=== PATIENT | male | born 1955 | race Caucasian/White ===

== ENCOUNTER → 2016-06-16 | Day surgery (SDC) | payer OTHER ==
[2016-06-14 12:53] VITALS: Ht 182.9 cm; Wt 93.2 kg
--- NOTE | 2016-06-15 18:29 | HISTORY & PHYSICAL EXAMINATION ---
DATE OF ADMISSION: 06/16/2016 HISTORY OF PRESENT ILLNESS: A 60-year-old male who presents for preop evaluation, requesting surgery to painful dorsal right hallux. He describes the pain as tender. He noticed the condition started over 2 years ago; however, the last 6 months have been gradually getting worse. He denies any recent exposure, precipitating even or history of this condition. Associated signs and symptoms include tenderness. He has had extensive conservative treatment for the past [address] Coto in [place] who referred him to my office for surgical intervention. He has failed accommodative padding, accommodative shoes, multiple steroid injections, oral medications, insoles with little to no relief. He notes the conservative care, did help; however, when he returns to any increase in activity his pain is greater. He is requesting surgical intervention due to the nature and severity of discomfort. PAST SURGICAL HISTORY: Shoulder surgery in 2008, knee surgery in 2004, hand surgery in 2007. PAST MEDICAL HISTORY: Hypertension, arthritis. MEDICATIONS: None. ALLERGIES: SULFA DRUGS. FAMILY HISTORY: Asthma, colitis. SOCIAL HISTORY: Admits to alcohol use, drinking described as social. The patient admits to tobacco use, currently is not smoking, quit 2 weeks ago, relates a smoking history of 40 pack-years. REVIEW OF SYSTEMS: Unremarkable except chief complaint. PHYSICAL EXAMINATION: CONSTITUTIONAL: The patient appears well-developed and nourished with good attention to body grooming and habitus. HEAD AND FACE: Head is normocephalic and atraumatic without any gross head, face, or neck masses. EYES: Conjunctival and pupillary reaction to light and accommodation are normal. EARS, NOSE, MOUTH, AND THROAT: Unremarkable. NECK: Neck is supple. Trachea is midline without any adenopathy or crepitus palpable. CARDIOVASCULAR EXAMINATION: Normal S1, S2 without murmur, gallops, rubs, or clicks noted. Cardiovascular exam is normal. RESPIRATORY: Chest is symmetric. No scars are visible. No port or pacemaker. LUNGS: Clear to auscultation bilaterally and equal. GASTROINTESTINAL EXAMINATION: Abdominal organs, bladder, and kidneys show no abnormalities, masses, tenderness, or rigidity. LYMPHATIC EXAMINATION: No popliteal, inguinal, or supraclavicular lymphadenopathy noted. LOWER EXTREMITY VASCULAR EXAMINATION: DP palpable. PT palpable. DERMATOLOGY: There is swelling of the right hallux metatarsophalangeal joint +2/6. The right metatarsophalangeal joint hallux is red. NEUROLOGICAL: Touch, pin, vibratory pain, proprioception sensations are normal. Deep tendon reflexes are normal. MUSCULOSKELETAL: Muscle tone is normal. Muscle strength is 5/5 all groups tested. Inspection and palpation of bones, joints and muscles is unremarkable. First metatarsophalangeal joint shows evidence of painful palpable dorsal eminence on the right. Range of motion is eliminated and the hallux is abutting the second toe on the right, pain on palpation and light palpation of the right first metatarsophalangeal joint tenderness over attempted dorsiflexion and plantarflexion with limited range of motion noted. IMPRESSION: 1. Hallux rigidus, right first metatarsophalangeal joint. 2. Osteoarthritis, right first metatarsophalangeal joint. 3. Degenerative joint disease, right first metatarsophalangeal joint. 4. Hallux abducto valgus deformity, right. 5. Difficulty walking. 6. Pain lower extremity, right foot. PLAN: I discussed conservative treatment consisting of extra depth shoes, accommodative padding, steroid injections, nonsteroidals and orthotics. The patient did not proceed with orthotics previously as these were not covered by his insurance and was unable to afford them. This was discussed at length at the preoperative visit, noting that it would be recommended to obtain the orthotics preoperatively as he still may need these despite having surgery. The patient notes he is unable to afford this treatment at this time and would like to proceed with surgical intervention. Surgical procedure to be performed modified Marley cheilectomy, metatarsal phalangeal joint and toe implant arthroplasty, right first MTPJ. This will be performed under general anesthesia as an outpatient at the surgery center. Procedure, risks and complications were fully reviewed with the patient. Consent form, foot diagram and illustration reviewed in all their entirety. All the patient's questions were answered. Complications were discussed in detail with the patient including pain, infection, swelling that may or may not be excessive, pins and needles feeling, numbness, metatarsalgia, excessive bleeding, delay or nonhealing of bone, delay or nonhealing of skin, enlarged scar, failure of the procedure, reoccurrence or worsening condition which may or may not require further surgery, adverse reaction to anesthesia, allergic reaction to suture or other implant material, loss of toe, foot, or leg, flail toe, stiff toe, short toe, elevated toe, transfer lesion or callus, peripheral neurovascular complications such as phlebitis, damage to nerves or vascular structures, significant chronic pain, chronic nerve pain or damage, and general medical complications. The patient will be required to be in a surgery shoe for a minimum of 3-6 weeks and not return to dress shoe for 8-12 weeks depending on postop edema. The patient is aware this is an elective type procedure and I recommend a second opinion. The patient stated they understood. Consent form was signed with a copy of the foot diagram and illustration given to the patient. Verbal and written postop instructions were given. The patient will be required to be in a surgery shoe for a minimum of 3-6 weeks and not return to dress shoe for 8-12 weeks depending on the postop edema. The patient will return to the office for postop check or sooner if medically necessary. Instructed to keep dressing clean, dry, and intact until seen at the office.
[~2016-06-16] VITALS: Ht 182.9 cm; Wt 93.2 kg
[~2016-06-16] MED LIST: ATROPINE SULFATE 0.1 MG/ML 5ML SYR IV PRN; BUPIVACAINE 0.5 % 5 MG/1 ML MPF 30ML VIAL ONE; CEFAZOLIN 1000MG/55 ML D5W IV SCH; ETOD400T PO; FENTANYL CITRATE INJ 50 MCG/1 ML 2 ML VIAL IV PRN; HYDR-5688 PO; KETOROLAC TROMETHAMINE 30 MG/ML VIAL IV. PRN; LABETALOL HCL IV 5 MG/ML 20ML IV PRN; LACTATED RINGER'S 1000ML 1,000 ML IV SCH; LOSA50TA6 PO; ONDANSETRON INJ 2 MG/ML 2 ML VIAL IV PRN; PATIENT'S ALLERGY INFO NEEDS ENTERED SCH; SODIUM CHLORIDE 0.9% 1000ML 1,000 ML IV SCH
--- NOTE | 2016-06-16 06:49 | History & Physical Bridge - SC ---
H&P Re-Evaluation Bridge Note: I have examined the patient, reviewed the History & Physical and in the interval since the performance of the History & Physical I have noted the following changes of clinical significance: No changes noted
--- NOTE | 2016-06-16 06:50 | Discharge Instructions-SurgCtr ---
Discharge Instructions Visit Reason for Visit: Right Hallux Limitus Discharge Discharge Diagnosis / Problem: same as above Discharge Goals Goal(s): Decrease discomfort Activity Recommendations Activity Limitations: as noted below Medications: * Resume previous medications unless instructed by your surgeon. * Take your medications as prescribed. Call our office ([phone]) at any time, if you experience severe pain that does not subside shortly after taking your pain medication. Activity: * Do not put any standing weight on your operated foot/ankle. Use the crutches or walker as instructed. Special Care: * Keep your bandage clean and dry. Do not remove your bandage unless otherwise instructed. A small amount of blood may appear on the bandage over the surgical site. Call our office ([phone]) if you bandage becomes blood-soaked or wet. * Elevate your operated foot/ankle on pillows, above the level of your heart, as often as possible during the first 2-3 days following surgery. Keep your knee flexed slightly with a pillow under your knee when you elevate your foot/ankle. * Apply a ice bag to your foot/ankle over the operative site for 20-30 minutes out of each hour while you are awake. Do not allow the ice bag to directly contact bare skin. * Avoid bumping or handling any pins visible in your toes. If any pin feels or appears loose, call the office ([phone]). * Take your oral temperature in the morning and at bedtime. Call our office ([phone]) if your temperature rises above 101 degrees Fahrenheit. Call your surgeon's office at ([phone]) for any problems or concerns such as excessive bleeding and/or pain unrelieved by your prescribed pain medications. If you have any questions, please do not hesitate to ask them. Avoid all tobacco products. If you need help to stop smoking, call [place] FREE QUITLINE at . This is a free call. Follow-up: Follow-up with Dr. Renee Anesthesia . Post Anesthesia Instructions: If you have had General Anesthesia or IV Sedation: * Do not drive today. * Resume driving when surgeon permits. * Do not make important decisions or sign legal documents today. * Call surgeon for: 1. Temperature elevations greater than 101 degrees F. 2. Uncontrollable pain. 3. Excessive bleeding. 4. Persistent nausea and vomiting. 5. Medication intolerance (nausea, vomiting or rash). * For nausea and vomiting use only clear liquids such as: tea, soda, bouillon until nausea subsides, then gradually increase diet as tolerated. * If you have any concerns or questions, call your surgeon's office. If physician is unavailable and it is an emergency, call 911 or go to the nearest emergency room. . Diet Recommendations Home Diet: no limitations Pending Studies Studies pending at discharge: no Medical Emergencies . Who to Call and When: Medical Emergencies: If at any time you feel your situation is an emergency, please call 911 immediately. . Non-Emergent Contact Non-Emergency issues call your: Primary Care Provider . . "Provider Documentation" section prepared by Omayra Hendricks.
--- NOTE | 2016-06-16 09:41 | DIAGNOSTIC IMAGING REPORT ---
RIGHT FOOT RADIOGRAPHS CLINICAL HISTORY: Postoperative evaluation of the right foot. COMPARISON STUDY: Intraoperative fluoroscopic images of the right foot performed earlier today. FINDINGS: These images demonstrate a right first metatarsophalangeal joint arthroplasty. The hardware is intact and anatomic alignment is noted. There are no unexpected radiopaque foreign body. There is soft tissue gas as expected. Tarsometatarsal joints are intact. There is no acute fracture. There is moderate plantar calcaneal spurring. IMPRESSION: Expected findings following right first metatarsophalangeal joint arthroplasty. Electronically signed by: Nathaniel Morales M.D. 06/16/2016 9:39 AM Dictated Date/Time: 06/16/2016 9:31 AM
[2016-06-16 10:07] VITALS: TEMP 36.6
--- NOTE | 2016-06-16 10:09 | DIAGNOSTIC IMAGING REPORT ---
SURGICENTER FOOT, 2 VIEWS CLINICAL HISTORY: RIGHT FOOT SURGERYpostoperative evaluation COMPARISON STUDY: None FLUOROSCOPY TIME: 10 seconds. FINDINGS: Anatomic alignment status post right first metatarsophalangeal joint arthroplasty. IMPRESSION: Anatomic alignment status post right first metatarsal phalangeal joint arthroplasty. Electronically signed by: Jeronimo Nugent M.D. 06/16/2016 10:08 AM Dictated Date/Time: 06/16/2016 9:53 AM
--- NOTE | 2016-06-16 10:17 | OPERATIVE REPORT ---
DATE OF OPERATION: 06/16/2016 SURGEON: Dr. Renee. PREOPERATIVE DIAGNOSES: Degenerative joint disease, hallux limitus, hallux abductovalgus deformity, right first metatarsophalangeal joint capsulitis. POSTOPERATIVE DIAGNOSES: Same, with rule out gouty arthritis. PROCEDURES: 1. Modified Marley tenotomy, HAV correction right first MTPJ. 2. Cheilectomy, right first MTPJ. 3. Total implant arthroplasty, right first MTPJ. ANESTHESIA: General with local field block, 30 mL 0.5% Marcaine plain. HEMOSTASIS: Pneumatic ankle tourniquet inflated to a level of 250 mmHg for a total tourniquet time of 90 minutes. ESTIMATED BLOOD LOSS: Minimal. MATERIALS: 2-0, 3-0 Vicryl, 4-0 nylon, Arthrosurface total implant 1.5 x 3.5 offset metatarsal component 1.5 mm poly phalangeal component. HISTOPATHOLOGY: Bone sent. Tophi sent for identification. COMPLICATIONS: None. The patient tolerated the procedure and anesthesia well without complications, transferred to the recovery room with vital signs stable and neurovascular status intact. PROCEDURE: The patient was brought to the OR and placed on the OR table in a supine position. Upon completion of general anesthesia by the anesthesia department, a local field block was performed with the above-mentioned anesthetic. The foot was scrubbed, prepped and draped in the usual aseptic fashion. Attention was directed to the right first metatarsophalangeal joint, was just medial to tendon of extensor hallucis longus. Dissection was carried down to the level of the capsular structures. It should be noted on incision of the capsule, there was white tophi crystal formation that were sent to histopathology. It was unsure due to the amount that was there if this was from secondary to steroids or gouty tophi. It was sent to pathology for identification purposes. At this time, HAV correction was performed with total release of the adductor. Tenotomy was performed of adductor, as well as the fibular sesamoid freely floating within the first metatarsal. Attention was then directed to the first metatarsophalangeal joint where a guidewire under fluoroscopy was placed in the central aspect of the first metatarsal. This was then drilled over the guide pin and a hole was etched to the depth of the tap. Bone cement was not used and the tapered post was advanced decompressing the joint slightly 2 mm. At this time, the area was measured and found to be an appropriate size, 1.5 x 3.5. The surface reamer was used based on the offsets of the articular component. Dorsal reamer guide was placed in the post and dorsal reaming was performed. At this time, the sizing trial was placed over the post. Excessive bone was removed around to not impinge on motion of the area. At this time, fluoroscan was used to check pin placement in the proximal phalanx and the center of the portion of bone. The area was drilled and tapped. The sizing trial poly was placed over the area. There was limited motion still noted despite the decompression of the joint. This was removed. Phalangeal component was removed. The guidewire was reinserted and the phalangeal component was decompressed a little more to increase on motion. At this time, the size trial poly and implant were placed. The patient had approximately 50 degrees of motion. The wound was copiously lavaged with normal saline. Excessive bone formation was removed not to impinge on the joint as well. Both the metatarsal head and the poly component were placed. There was no cement used throughout the procedure. The wound was copiously lavaged and closure began of the deep capsular structures using 3-0 Vicryl. Superficial deep structures were closed using 3-0 Vicryl, skin margins were reopposed with 5-0 PDS interspersed with 4-0 nylon. Pneumatic ankle tourniquet was released with normal hyperemic mcfarlane to digits 1 through 5. The patient tolerated the procedure and anesthesia well without complications, transported to recovery room with vital signs stable and neurovascular status intact. I attest to the content of the Intraoperative Record and any orders documented therein. Any exceptio ns are noted below.
[2016-06-16 10:32] VITALS: BP 132/79; PULSE 65; O2SAT 97
--- NOTE | 2016-06-16 10:56 | Anesthesia Progress Nt - [facility] ---
Anesthesia Post Op Note Date & Time Jun 16, 2016 at 10:57 Vital Signs Pain Intensity: 3 Vital Signs Past 12 Hours Date Time Temp Pulse Resp B/P Pulse Ox O2 Delivery O2 Flow Rate FiO2 06/16/16 10:32 65 16 132/79 97 Room Air 06/16/16 10:07 36.6 56 16 135/80 98 Room Air 06/16/16 09:58 61 15 127/77 97 06/16/16 09:58 60 15 06/16/16 09:57 59 12 142/85 97 06/16/16 09:57 59 12 06/16/16 09:54 114/104 06/16/16 09:52 66 19 97 06/16/16 09:52 37.2 69 11 142/85 96 Room Air 06/16/16 09:52 72 19 06/16/16 09:48 143/87 06/16/16 09:47 62 20 06/16/16 09:47 60 20 96 06/16/16 09:43 123/80 06/16/16 09:42 63 15 06/16/16 09:42 68 15 97 06/16/16 09:38 138/80 06/16/16 09:37 56 17 06/16/16 09:37 55 17 96 06/16/16 09:33 133/79 06/16/16 09:32 55 16 97 06/16/16 09:32 54 16 06/16/16 09:28 141/95 06/16/16 09:27 58 14 100 06/16/16 09:27 56 14 06/16/16 09:23 132/98 06/16/16 09:22 54 13 06/16/16 09:22 54 13 100 06/16/16 09:19 141/81 06/16/16 09:17 63 15 100 06/16/16 09:17 36.7 57 16 145/84 99 Mask 6 06/16/16 09:17 64 15 06/16/16 06:34 36.8 63 18 129/77 97 Room Air Notes Mental Status: alert / awake / arousable, participated in evaluation Pt Amnestic to Procedure: Yes Nausea / Vomiting: adequately controlled Pain: adequately controlled Airway Patency, RR, SpO2: stable & adequate BP & HR: stable & adequate Hydration State: stable & adequate Anesthetic Complications: no major complications apparent
== END | disposition home or self-care (01) ==
LOC: X.SURG 06:08
PROVIDERS: ATTEND Podiatrist Foot & Ankle Surgery
DX: M20.21 Hallux rigidus, right foot (principal); M19.071 Primary osteoarthritis, right ankle and foot; M20.11 Hallux valgus (acquired), right foot; R26.2 Difficulty in walking, not elsewhere classified; I10 Essential (primary) hypertension; Z88.2 Allergy status to sulfonamides; Z82.5 Family history of asthma and other chronic lower respiratory diseases; Z83.79 Family history of other diseases of the digestive system; Z87.891 Personal history of nicotine dependence; Z88.5 Allergy status to narcotic agent

== ENCOUNTER → 2017-07-06 | Outpatient (CLI) | payer OTHER ==
[~2017-07-06] MED LIST changes: -ATROPINE SULFATE 0.1 MG/ML 5ML SYR IV PRN; -BUPIVACAINE 0.5 % 5 MG/1 ML MPF 30ML VIAL ONE; -CEFAZOLIN 1000MG/55 ML D5W IV SCH; -FENTANYL CITRATE INJ 50 MCG/1 ML 2 ML VIAL IV PRN; -KETOROLAC TROMETHAMINE 30 MG/ML VIAL IV. PRN; -LABETALOL HCL IV 5 MG/ML 20ML IV PRN; -LACTATED RINGER'S 1000ML 1,000 ML IV SCH; -ONDANSETRON INJ 2 MG/ML 2 ML VIAL IV PRN; -PATIENT'S ALLERGY INFO NEEDS ENTERED SCH; -SODIUM CHLORIDE 0.9% 1000ML 1,000 ML IV SCH
[2017-07-06 12:17] LABS: BASO % 0.5 %; BASO ABS # 0.05 K/uL (0-0.2); EOS % 0.9 %; EOS ABS # 0.09 K/uL (0-0.5); HEMATOCRIT 48.3 % (42-52); HEMOGLOBIN 16.5 g/dL (14.0-18.0); IG# 0.02 K/uL (0.00-0.02); LYMPH % 12.6 %; MEAN CELL VOLUME 96.8 fL (80-100); MEAN CORPUSCULAR HEMOGLOBIN 33.1 pg (25-34); MEAN CORPUSCULAR HGB CONC 34.2 g/dl (32-36); MEAN PLATELET VOLUME 9.3 fL (7.4-10.4); MONO % 7.2 %; MONO ABS # 0.74 K/uL (0.11-0.59); NEUT % 78.6 %; NEUT ABS # 8.08 K/uL (1.4-6.5); PLATELET COUNT 305 K/uL (130-400); RED CELL DISTRIBUTION WIDTH CV 15.2 % (11.5-14.5); RED CELL DISTRIBUTION WIDTH SD 53.1 fL (36.4-46.3); WHITE BLOOD COUNT 10.28 K/uL (4.8-10.8)
[2017-07-06 14:23] LABS: ALBUMIN 3.5 gm/dl (3.4-5.0); ALT/SGPT 30 U/L (12-78); BLOOD UREA NITROGEN 15 mg/dl (7-18); CALCIUM 8.5 mg/dl (8.5-10.1); CARBON DIOXIDE 25 mmol/L (21-32); CHOLESTEROL 158 mg/dl (0-200); CREATININE 1.23 mg/dl (0.60-1.40); GLUCOSE 99 mg/dl (70-99); POTASSIUM 4.1 mmol/L (3.5-5.1); SODIUM 137 mmol/L (136-145); URIC ACID 4.6 mg/dl (2.6-7.2)
[2017-07-06 14:28] LABS: ALKALINE PHOSPHATASE 132 U/L (45-117); AST/SGOT 12 U/L (15-37); LDL CHOLESTEROL CALCULATED 77 mg/dl; TOTAL PROTEIN 7.1 gm/dl (6.4-8.2)
== END | disposition home or self-care (01) ==
LOC: C.LABMFLN 09:22
PROVIDERS: ATTEND Family Medicine
DX: N40.0 Benign prostatic hyperplasia without lower urinary tract symptoms (principal); I10 Essential (primary) hypertension; M19.90 Unspecified osteoarthritis, unspecified site

== ENCOUNTER 2019-07-04 11:15 | Observation (INO) ==
[2019-07-04] MEDS ORDERED: fentaNYL citrate 100 MCG/2 ML VIAL ONE ×4 (12:30→14:45)
[2019-07-04] MEDS ORDERED: MIDAZOLAM HCL 5 MG/ML 1 ML VIAL ONE ×3 (12:30→14:45)
--- NOTE | 2019-07-04 12:46 | History & Physical Bridge Note ---
Date of Service July 04, 2019 History & Physical Bridge Note I have examined the patient, reviewed the History & Physical and in the interval since the performance of the History & Physical I have noted the following changes of clinical significance: no changes noted
--- NOTE | 2019-07-04 12:46 | Pre Anesthesia Assessment ---
Date of Service July 04, 2019 Pre Sedation Assessment Vital Signs Pulse Resp BP Pulse Ox 07/04/19 11:47 49 L 16 130/72 97 Cardiovascular RRR, no murmur, no edema Respiratory normal respiratory effort, lungs clear to auscultation Pre-Sedation Airway Assessment Smoking Status: Former smoker Hx Sleep Apnea: No Short, Thick Neck: No Oral Cavity: + Dental Abnormalities Mallampati Class: III ASA: ASA3 NPO Status Date of Last Intake of Fluids: 07/04/19 Time of Last Intake of Fluids: 08:00 Date of Last Intake of Solid Food: 07/03/19 Time of Last Intake of Solid Foods: 19:00 Procedure Planning Contraindications for Sedation: none Current Medications Reviewed: Yes Notes The planned sedation has been discussed with the patient. Informed Consent was obtained. I have identified the patient, determined the appropriateness of sedation and have assessed the patient immediately prior to the procedure. All medicine(s) and interventions are by my order.
[2019-07-04] MEDS ORDERED: HEPARIN (PORCINE) 1000 UNIT/ML 10 ML (CATH LAB USE ONLY) ONE (13:47)
--- NOTE | 2019-07-04 16:00 | Operative Report ---
Post Operative Report Pre & Post Diagnosis paroxsymal Atrial flutter Operation Date: 07/04/19 13:00 <No data on this case meets the specified criteria> I identified the patient and participated in the time-out.: Yes Procedure Operation Date: 07/04/19 13:00 Actual Procedures s 3D Mapping (Carto) - Miriam Burnham DO s Ultrasound Vascular Access - Miriam Burnham DO p EPS + Ablation for SVT Flutter - Miriam Burnham DO Surgeon Miriam Burnham, Pickle Solution Maker none Estimated Blood Loss 5 Findings Consistent with Post-Op Diagnosis Specimens none Description of Procedure see official report I attest to the content of the Intraoperative Record and any orders documented therein. Any exceptions are noted below.
[2019-07-04] MEDS ORDERED: ACETAMINOPHEN 325 MG TAB PO PRN (16:01)
[2019-07-04] MEDS ORDERED: CARISOPRODOL 350 MG TABLET PO PRN (16:01)
--- NOTE | 2019-07-04 16:01 | Post Anesthesia Assessment ---
Date of Service July 04, 2019 Post Sedation Assessment Vital Signs Pulse Resp BP Pulse Ox 07/04/19 11:47 49 L 16 130/72 97 Recovery Score Activity: Moves 4 extremities Respiration: Deep Breath/Cough Circulation: +/-20% PreAnes Value Consciousness: Fully Awake Oxygen Saturation: > 92% On Room Air Discharge Sedation Level of Care: Fast Track Phase II Post Sedation Plan On clinical assessment, the patient appears to have tolerated the sedation without complications. Patient is recovering as anticipated. Patient will continue to be monitored by nursing and may be discharged when sedation discharge criteria are met per below protocol. Upon Completions of procedure up to 15 minutes continue every 5 minute vital signs and the P.A.R. score; then discharge to a Phase I or Fast Track to Phase II per the following guidelines: * Discharge Patient to appropriate Phase II area if PAR is 8 or greater or return to pre- procedure baseline. The post - procedure orders will be as directed. * If PAR score is less than 8 or not return to pre-procedure baseline then patient will follow Phase I monitoring till PAR is reached for Phase II. The Phase I may be done in procedure room or may call to secure a Phase I area. * If naloxone or flumazenil are used for reversal, hold in Phase I for continued monitoring from when last reversal dose was given for a minimum of 60 minutes or longer pending the nurse and/or physician discretion of patient condition before discharge to Phase II. Please call the Sedation Physician to re-evaluate and complete post-note for discharge to Phase II area. Do NOT discharge from procedure sedation or Phase 1 until post- sedation evaluation note is complete by procedure /sedation MD Sedation Discharge Instructions to be given to the patient at discharge to home.
--- NOTE | 2019-07-04 16:09 | Discharge Summary ---
Date of Service July 05, 2019 Admission HPI Per Admitting Provider Pt here for elective EPS and atrial flutter ablation +fatigue and SOB Admission Exam Per Admitting Provider aaox3, NAD NC/AT, EOMI Supple No JVD Nrl S1/S2, No murmur CTA b/l no w/r/r soft nt/nd no LE edema b/l skin intact no focal deficits Principal Diagnosis paroxysmal atrial flutter s/p ablation Discharge Exam aaox3, NAD NC/AT, EOMI Supple No JVD Nrl S1/S2, No murmur CTA b/l no w/r/r soft nt/nd no LE edema b/l skin intact no focal deficits b/l groins soft and no hematoma Discharge Data Allergies Allergy/AdvReac Type Severity Reaction Status Date / Time Sulfa (Sulfonamide Allergy Unknown UNSURE - Verified 07/04/19 11:57 Antibiotics) HAPPENED A CHILD morphine AdvReac Unknown AGITATION Verified 07/04/19 11:57 AND "DOESN'T WORK WELL" Procedures Performed Operation Date: 07/04/19 13:00 Actual Procedures s 3D Mapping (Carto) - Miriam Burnham DO s Ultrasound Vascular Access - Miriam Burnham DO p EPS + Ablation for SVT Flutter - Miriam Burnham DO Ordered Studies ECG: SB 07/04/19 07:15 EP Lab Images for PACS ONCE Hospital Course (1) Atrial flutter: Total Time Total Time Spent Total Time Spent (In Minutes): 30 Total Time Includes: Examination of the Patient, Medication Reconciliation and Other Discharge Plan Discharge Items Patient Disposition: Home - Self-Care Reason For Visit: AFLUTTER ABLATION Discharge Diagnosis: paroxysmal atrial flutter s/p ablation Activity: As commented below Lifting: No more than 10 pounds Lifting Comment: do not lift or squat more than 10 pounds for 1 week Non-emergency contact: Stave Inspector Call non-emergency contact if: you have any medication questions Follow-up/Referrals: Timothy Raines DO [Primary Care Provider] - Diet: Heart Healthy Addtl Attending Provider Instructions: follow up with Dr. Burnham in 1 month as scheduled in [facility] Pending Studies at Discharge: No Stand-Alone Forms: My [facility] Medications and DC Order Prescriptions: Continued losartan 50 mg tablet 50 mg PO DAILY Qty: 90 RF: 3 omeprazole 20 mg capsule,delayed release(DR/EC) 20 mg PO DAILY Qty: 90 RF: 3 carisoprodol 350 mg tablet 350 mg PO QID PRN (Reason: muscle pain) Qty: 100 RF: 1 hydrocodone-acetaminophen 5-325 mg tablet 1 tab PO Q6H PRN (Reason: pain) Qty: 120 RF: 0 etodolac 500 mg tablet 500 mg PO BID Qty: 180 RF: 3 esomeprazole magnesium [Nexium] 20 mg capsule,delayed release(DR/EC) 20 mg PO DAILY Qty: 90 RF: 3 Discharge Orders: Discharge Order (Routine); Ordered 07/05/19 Ordered By: Miriam Burnham Admission Data Admit Date/Time: 07/04/19 15:56 Attending Provider: Miriam Burnham Admit Provider: Miriam Burnham Primary Care Provider: Timothy Raines
[2019-07-04] MEDS ORDERED: HYDROCODONE/ACETAMOPHEN 5/325MG TAB PO PRN (16:13)
[2019-07-04] MEDS: ETODOLAC~ORDER AWAITING ACTION SCH (17:14)
--- NOTE | 2019-07-05 03:24 | Operative Report ---
DATE OF OPERATION: 07/04/2019 PREOPERATIVE DIAGNOSIS: Paroxysmal atrial flutter. POSTOPERATIVE DIAGNOSES: Paroxysmal atrial flutter in addition to bidirectional block along the cavotricuspid isthmus. PROCEDURE: Electrophysiology study, 3D mapping of the His bundle region and the coronary sinus os, left atrial pacing, ultrasound guidance venous access and radiofrequency ablation along the cavotricuspid isthmus. SURGEON: Miriam Burnham DO ASSISTANTS: None. ANESTHESIA: Monitored conscious sedation administered under my supervision by Isidra Delong. Start time 13:49, end time 1558, a total of 16 mg of Versed, 350 mcg of fentanyl. INTRAVENOUS FLUIDS: 69 mL. BLOOD LOSS: 5 mL URINE OUTPUT: Not applicable. SPECIMENS: None. FINDINGS: See below. DRAINS: None. INDICATIONS: This is a 63-year-old gentleman with past medical history for sinus bradycardia, asymptomatic, gastroesophageal reflux disease and hypertension. He was having some shortness of breath and his primary care recommended a stress test, prior to the stress test though when he was getting his echocardiogram before the stress test, he ended up slipping into atrial flutter, so he was referred to EP that day, we were able to get him out of atrial flutter with diltiazem back to his sinus bradycardia, he was started on Eliquis. No AV vincent blockers due to the bradycardia and he was recommended a flutter ablation. CONSENT: Consent was obtained prior to the patient going into electrophysiology lab. The patient was informed of the risks, benefits and alternative procedure. Risks include but not limited to cardiac arrhythmia, sudden cardiac , cardiac arrhythmia, cerebrovascular accident, myocardial infarction, injury to the blood vessels, chamber of the heart or the [place] electrical system where he would need emergent pacemaker, bleeding and infection. The patient understood these risks and agrees to the procedure as planned. Informed consent was obtained. DESCRIPTION OF THE PROCEDURE: The patient was brought into electrophysiology lab in a fasting state. He was connected to continuous ic design manager. Timeout was performed to ensure patient identity and procedure correctly. The patient was prepped and draped over bilateral groins in normal surgical standard fashion. Marquez precautions maintained throughout the procedure. 1% lidocaine was given in the bilateral groins for local anesthesia. Then using ultrasound guidance for venous access, it was obtained in the following manner. Using the modified Seldinger technique, the left femoral vein had a 7-Syrian sheath with a 20 pole Halo catheter positioned along the right atrium. A 7-Syrian sheath followed by a Decapolar coronary sinus Biosense catheter DF curve positioned down the coronary sinus. The right femoral vein initially had a 6-Syrian sheath followed then by an SRO with the SmartTouch ThermoCool DF curved Biosense irrigated ablation catheter. Since the patient was in sinus rhythm, we I did an empiric ablation. I first did 3D mapping of the His bundle region of the coronary sinus os, then we measured the distance across the cavotricuspid isthmus by pacing medial CS proximal measuring the Halo distal and that was 60 and then vice versa pacing Halo distal to CS proximal was 74. Then I gave a series of radiofrequency hendrickson starting from the tricuspid valve down to the IVC. 35 cochran no more than 30 seconds. There was a little bit of a pocket in his anatomy. Ultimately it did develop bidirectional block and during our waiting period, I did an electrophysiology study with the following findings: Sinus cycle length 1215 milliseconds. The NM interval 161 milliseconds, QRS 86 milliseconds, QT 412 milliseconds, AH 86 milliseconds, HV 41 milliseconds, AV Wenckebach was 390 milliseconds, AV node ERP was 600/350 and at 400 it was less than or equal to the atrial ERP. The atrial ERP was 600/290 and 400/310. The right ventricular ERP was 600/260 and 400/240. After successful 30 minutes of waiting from our last ablation, I rechecked to make sure that we still had bidirectional block by pacing medial from the line with the CS catheter to Halo distal and it was 140 milliseconds and then vice versa was still about the same 140 milliseconds. I confirmed this also by placing the ablation catheter on either side and pacing from that as well. With confirmation of successful bidirectional block along the cavotricuspid isthmus, the catheters were then removed from the body and the sheaths were pulled using manual compression to establish hemostasis. IMPRESSION: 1. Successful empiric typical atrial flutter radiofrequency ablation with bidirectional block along the cavotricuspid isthmus. 2. Normal atrioventricular vincent pathology. PLAN: Monitor patient overnight, 12-lead ECG. He is not to do any heavy lifting or squatting for 1 week. He can continue the Eliquis for now and he is okay to hold it for his dental extractions that coming up next month and I probably would continue it after that. He will follow up in my office in 1 month's time and we will also eventually discuss about an ischemic evaluation. I attest to the content of the Intraoperative Record and any orders documented therein. Any exception s are noted below.
[2019-07-05] MEDS: ETODOLAC~ORDER AWAITING ACTION SCH ×2 (07:37)
[2019-07-05] MEDS ORDERED: PANTOprazole 40 MG TAB PO SCH (09:00)
[2019-07-05] MEDS ORDERED: NON-FORMULARY MEDICATION (Esomeprazole Magnesium [Nexium] 20 MG) PO SCH (09:00)
[2019-07-05] MEDS ORDERED: LOSARTAN POTASSIUM 50 MG TAB PO SCH (09:00)
--- NOTE | 2019-07-05 19:01 | Electrocardiogram Report ---
Test Reason : Blood Pressure : / mmHG Vent. Rate : 054 BPM Atrial Rate : 054 BPM P-R Int : 170 ms QRS Dur : 088 ms QT Int : 444 ms P-R-T Axes : 040 016 031 degrees QTc Int : 421 ms Sinus bradycardia Otherwise normal ECG No previous ECGs available Confirmed by Deion Grimaldo ([id number]) on 07/05/2019 7:01:39 PM Referred By: Miriam Burnham Confirmed By:Olayinka Grimaldo
== END 2019-07-05 08:40 | disposition home or self-care (01) ==
LOC: 2E 11:15 → EP 11:15

== ENCOUNTER 2021-07-22 05:37 | Observation (INO) ==
--- NOTE | 2021-06-25 13:09 | PAT Medication Instructions ---
Medication Instructions Date of Service June 25, 2021 Home Medications Medication Instructions Recorded apixaban 5 mg tablet (Eliquis) 5 mg PO BID #60 tab 06/05/21 etodolac 500 mg tablet 500 mg PO UD PRN omeprazole 20 mg capsule,delayed release 20 mg PO UD PRN apixaban 5 mg tablet (Eliquis) 5 mg PO BID amiodarone 200 mg tablet 200 mg PO QAM carisoprodol 350 mg tablet 350 mg PO UD PRN hydrocodone 5 mg-acetaminophen 325 mg tablet 1 tab PO UD PRN losartan 50 mg tablet 50 mg PO QAM ASK your surgeon for instructions etodolac 500 mg tablet 500 mg PO UD PRN ASK your prescriber and surgeon apixaban 5 mg tablet (Eliquis) 5 mg PO BID DO NOT take the morning of surgery carisoprodol 350 mg tablet 350 mg PO UD PRN losartan 50 mg tablet 50 mg PO QAM Take morning of surgery With a small sip of water, OTHERWISE NOTHING TO EAT OR DRINK AFTER MIDNIGHT: omeprazole 20 mg capsule,delayed release 20 mg PO UD PRN(if needed) amiodarone 200 mg tablet 200 mg PO QAM hydrocodone 5 mg-acetaminophen 325 mg tablet 1 tab PO UD PRN(okay to take up to 4 hours prior to surgery if needed) Take evening before surgery hydrocodone 5 mg-acetaminophen 325 mg tablet 1 tab PO UD PRN(if needed) Other Notes If you have any questions please call us at [phone] or [phone] or [phone] or [phone]
--- NOTE | 2021-06-30 10:02 | Anesthesiology Consultation ---
Date of Service June 30, 2021 Assessment & Plan (1) Encounter for pre-operative examination: Chart Review Chart Review: Acceptable Risk for Surgery (pending PCP clearance and preop Covid testing results ) and Patient seen in Pre Admission Testing -[facility] of upcoming [facility] will await final PCP approval. Per PAT appt on 06/30/21, patient denies any recent travel or large group activities. No known Covid positive exposures or Covid related symptoms. No known Covid infection in the past 90 days. Pt is vaccinated for Covid. Preop Covid testing scheduled 07/20/21 = will await results. Educated on importance of self quarantining, social distancing and wearing mask in public for the patient one week prior to surgery and after Covid testing done Cardiology Letter 06/22/2021 = "There is no contraindication for surgery from a cardiac standpoint. Patient will hold Eliquis for 3 days before and after the planned prostatectomy on 07/22/2021." Pt last seen by cardio 04/23/21= patient seen for follow-up. Radiology aware of upcoming prostate removal. Did have recent Zio patch recently that revealed e pisodes of AF/flutter and then sinus bradycardia. He is asymptomatic with bradycardia; may be slightly symptomatic with a tachycardia. We are limited on further medications due to bradycardia as well as unable to be admitted for possible sotalol or Tikosyn given the pandemic hospital crisis. He may benefit from an PVI and recheck the CTI line in the future but has a lot going on the next month between his surgery and him needing prostatectomy. Recommend conservative measures at this time. Start amiodarone. Continue Eliquis and ARB. Follow-up in 3 months Seen by PCP 05/28/2021 = continue current medications. Continue following with urologypatient will need clearance if he is scheduled for surgery. Continue follow-up with cardiology. History Surgery Operation Date: 07/22/21 07:30 Proposed Procedures p Robotic Laparoscopic Assisted Radical Retropubic Prostatectomy, Possible Open, Possible Pelvic Lymph Node Dissection, Possible Suprapbic Tube Placement - Isaac Ordonez MD Height/Weight Height: 6 ft Weight: 91.2 kg Allergies Allergy/AdvReac Type Severity Reaction Status Date / Time Sulfa (Sulfonamide Allergy Unknown UNSURE - Verified 06/25/21 10:43 Antibiotics) HAPPENED A CHILD morphine AdvReac Unknown AGITATION Verified 06/25/21 10:43 AND "DOESN'T WORK WELL" Medications Home Medications Medication Instructions Recorded Confirmed Last Taken etodolac 500 mg tablet 500 mg PO UD PRN 02/06/20 06/25/21 Unknown omeprazole 20 mg capsule,delayed 20 mg PO UD PRN 02/06/20 06/25/21 Unknown release apixaban 5 mg tablet (Eliquis) 5 mg PO BID #60 tab 06/05/21 06/25/21 Unknown amiodarone 200 mg tablet 200 mg PO QAM 06/25/21 06/25/21 Unknown carisoprodol 350 mg tablet 350 mg PO UD PRN 06/25/21 06/25/21 Unknown hydrocodone 5 mg-acetaminophen 325 1 tab PO UD PRN 06/25/21 06/25/21 Unknown mg tablet losartan 50 mg tablet 50 mg PO QAM 06/25/21 06/25/21 Unknown Past Medical History Medical History Atrial fibrillation PAROXSYMAL ATRIAL FIB/FLUTTER - NO HX CARDIOVERSION HX 2 ABLATIONS IN JUN 2019 AND REDO IN 01/2020 Heartburn INFREQUENT History of COVID-19 HX + TEST FOR COVID 19 - HOME TEST AND AT WORK TEST BOTH + ON 05/25/21 OR 05/26/21 NO SYMPTOMS NO CURRENT SYMPTOMS - PCR TEST ON 06/25/21 NEGATIVE FOR COVID Hypertension Prostate cancer (02/05/21) REASON FOR UPCOMING PROCEDURE Sleep apnea CPAP RECOMMENDED/HAS NOT GOT YET Exercise / Class Metabolic Activity II 4-5 Yardwork/Stairs/Walk up hill (one flight of stairs - no chest pain or SOB ) Past Family History Family History Mother Cardiac disorder Unknown Cardiac disorder Sister Family history of diabetes mellitus Past Surgical History Surgical History H/O foot surgery GREAT TOE JOINT REPLACEMENT H/O knee surgery NUMEROUS - BOTH H/O shoulder surgery NUMEROUS - BOTH History of colonoscopy History of prostate biopsy S/P ablation of atrial flutter Electrophysiology study, 3D mapping of the His bundle region and the coronary sinus os, left atrial pacing, ultrasound guidance venous access and radiofrequency ablation along the cavotricuspid isthmus HX 2 ABLATIONS FOR AFLUTTER - MOST RECENT FALL 2019 Past Anesthesia History No Hx of Anesthesia Complications and No Family Hx of Anesthesia Complications History of PONV No Hx of PONV and No Hx of Motion Sickness Social History Smoking Status: Current some day smoker tobacco type: cigarettes Do You Dip or Chew Tobacco: No (HX, QUIT 25 YR AGO) Smoking End Date: 3 YR AGO QUIT ; HAVE SMOKED SOME SINCE - 1-2 CIGS A DAY - ADVISED NPO Hx Alcohol Use: Yes Alcohol type: beer alcohol intake frequency: 0-2 drinks per day (2 BEERS/DAY ) Hx Substance Use: No substance use type: does not use Review of Systems Patient denies chest pain, shortness of breath, dyspnea on exertion, cough, wheezing, palpitations. No hx of seizures, stroke, OK. No hx of blood clots or blood transfusions Physical Exam Vital Signs VITALS BP 143/78 P 50 (chronic bradycardia- asymptomatic) TEMP 98.8 SP02 95% RESP 16 Constitutional no acute distress ENMT Mouth: no TMJ clicking Thyromental Distance: > or= 3.5 Finger Breadths (3.5) Mallampati Class: II Full denture on top Partial bottom denture Neck + limited neck extension (minimal) and + facial hair (advised to trim and/or shave ) Respiratory normal respiratory effort; no respiratory distress Auscultation: lungs clear to auscultation bilaterally; no wheezes Cardiovascular Rate/Rhythm: regular rate and regular rhythm Heart Sounds: no murmur Vessels: no carotid bruit Musculoskeletal Spine: no pain with cervical ROM Extremities: extremities normal to inspection Psychiatric Orientation: alert Lab Results Anesthesia Preop Results Results Anesthesia Widget: WBC 8.21 K/uL (4.8-10.8) 06/30/21 Hgb 15.9 g/dL (14.0-18.0) 06/30/21 Hct 47.7 % (42-52) 06/30/21 Plt 238 K/uL (130-400) 06/30/21 Na 139 mmol/L (136-145) 06/30/21 K 4.4 mmol/L (3.5-5.1) 06/30/21 Cl 105 mmol/L (98-107) 06/30/21 CO2 29 mmol/L (21-32) 06/30/21 BUN 16 mg/dl (6-23) 06/30/21 Creat 1.15 mg/dl (0.6-1.4) 06/30/21 Glucose Level 95 mg/dl (70-99(Fasting)) 06/30/21 Urine Color Yellow 06/30/21 Urine Appearance Clear (Clear) 06/30/21 Urine pH 7.0 (4.5-7.5) 06/30/21 Urine Specific Delton 1.004 (1.000-1.030) 06/30/21 Urine Protein Negative (Negative) 06/30/21 Urine Glucose (UA) Negative (Negative) 06/30/21 Urine Ketones Negative (Negative) 06/30/21 Urine Blood Negative (Negative) 06/30/21 Urine Nitrite Negative (Negative) 06/30/21 Urine Bilirubin Negative (Negative) 06/30/21 Urine Urobilinogen Negative (Negative) 06/30/21 Urine Leukocyte Esterase Negative (Negative) 06/30/21 Blood Type O Positive 06/30/21 Antibody Screen NEGATIVE 06/30/21 Testing Electrocardiogram Date: 06/30/21 Findings: + SB @ (47bpm) Otherwise normal EKG per cardio. Chest X-Ray Date: 06/30/21 Findings: + NAD Echocardiogram Date: 06/28/19 EF: 58% RWMA: + none Other Findings: + LVH (Borderline/concentric) Valvular Disease: + no significant valvular disease Patient with sinus bradycardia for much of the resting lamination. Went into a flutter with RVRstress portion of test was canceled. Left atrium mildly enlarged. Proximal ascending thoracic aorta is mildly enlarged. It measures 4.0 cm. Stress Test Date: 04/08/21 Type: nuclear Lexiscan myocardial perfusion stress test was normal. Patient went into atrial fibrillation during the studyCardizem was given patient remained in AF HR letter performed the end of the test. LVEF 55%. TID normal at 1.31. Other Testing 14-day event monitor 03/23/2021 = Predominant rhythm sinus with about 15% episodes of atrial flutter. Average HR 75bpm; slowest HR 32bpm at 4am consistent with sinus bradycardia; fastest HR 259bpm at 6:05am consistent with atrial flutter. There was 15% atrial flutter; the longest episode reported by the computer was 2 hours and 30 seconds with average HR 127bpm (63-259bpm). In looking at the HR graph trends I tend to believe the episodes of atrial flutter and the burden are a lot higher. Rare VPC; no runs of NSVT.. The patient reported symptoms one time while in SR.
[2021-07-22] MEDS ORDERED: LR 15ML/HR IV SCH (06:00)
[2021-07-22] MEDS ORDERED: HEPARIN SOD 5,000 UNIT/0.5 ML VIAL SQ SCH (06:00)
[2021-07-22] MEDS ORDERED: ONDANSETRON INJ 2 MG/ML 2 ML VIAL IV PRN ×2 (06:54→12:43)
[2021-07-22] MEDS ORDERED: ePHEDrine sulfate 50 MG/ML AMP IV PRN (06:54)
[2021-07-22] MEDS ORDERED: ATROPINE SULFATE 0.1 MG/ML 10ML SYR IV PRN (06:54)
[2021-07-22] MEDS ORDERED: GLYCOPYRROLATE 0.2 MG/ML VIAL ONE ×2 (07:05→08:18)
[2021-07-22] MEDS ORDERED: DEXAMETHASONE SOD INJ 4 MG/ML VIAL ONE (07:05)
[2021-07-22] MEDS ORDERED: NEOSTIGMINE METHYLSULFATE 1 MG/ML 10ML VIAL ONE (07:05)
[2021-07-22] MEDS ORDERED: MIDAZOLAM HCL 1 MG/ML 2ML VIAL ONE (07:05)
[2021-07-22] MEDS ORDERED: ONDANSETRON INJ 2 MG/ML 2 ML VIAL ONE ×2 (07:05→08:18)
[2021-07-22] MEDS ORDERED: LIDOCAINE 2% 2 ML VIAL/AMP(20MG/ML) INFIL ONE (07:05)
[2021-07-22] MEDS ORDERED: PROPOFOL IV EMULSION 10 MG/ML 20 ML VIAL IV ONE (07:05)
[2021-07-22] MEDS ORDERED: fentaNYL citrate 100 MCG/2 ML VIAL ONE (07:05)
[2021-07-22] MEDS ORDERED: LARYING-O-JET KIT (LTA) ONE (07:08)
[2021-07-22] MEDS ORDERED: ROCURONIUM BROMIDE 10 MG/ML 5 ML VIAL IV ONE ×2 (07:08→10:30)
[2021-07-22] MEDS ORDERED: BUPIVACAINE 0.5 % 5 MG/1 ML MPF 30ML VIAL ONE (07:19)
--- NOTE | 2021-07-22 07:29 | History & Physical Report ---
Date of Service July 22, 2021 Assessment & Plan (1) Prostate cancer: Plan: here for prostatectomy risks, benefits, expectations reviewed History of Present Illness Primary Care Provider: Timothy Raines, DO here for prostatectomy Allergies Allergy/AdvReac Type Severity Reaction Status Date / Time Sulfa (Sulfonamide Allergy Unknown UNSURE - Verified 07/22/21 06:03 Antibiotics) HAPPENED A CHILD morphine AdvReac Unknown AGITATION Verified 07/22/21 06:03 AND "DOESN'T WORK WELL" Home Medications Medication Instructions Recorded Confirmed Type etodolac 500 mg tablet 500 mg PO UD PRN 02/06/20 07/22/21 History omeprazole 20 mg capsule,delayed 20 mg PO UD PRN 02/06/20 07/22/21 History release apixaban 5 mg tablet (Eliquis) 5 mg PO BID #60 tab 06/05/21 07/22/21 Rx amiodarone 200 mg tablet 200 mg PO QAM 06/25/21 07/22/21 History carisoprodol 350 mg tablet 350 mg PO UD PRN 06/25/21 07/22/21 History hydrocodone 5 mg-acetaminophen 325 1 tab PO UD PRN 06/25/21 07/22/21 History mg tablet losartan 50 mg tablet 50 mg PO QAM #90 tab 07/06/21 07/22/21 Rx Past Med/Surg History Medical History (Updated 07/22/21 @ 07:28 by Isaac Ordonez MD) Atrial fibrillation PAROXSYMAL ATRIAL FIB/FLUTTER - NO HX CARDIOVERSION HX 2 ABLATIONS IN JUN 2019 AND REDO IN 01/2020 Heartburn INFREQUENT History of COVID-19 HX + TEST FOR COVID 19 - HOME TEST AND AT WORK TEST BOTH + ON 05/25/21 OR 05/26/21 NO SYMPTOMS NO CURRENT SYMPTOMS - PCR TEST ON 06/25/21 NEGATIVE FOR COVID Hypertension Prostate cancer (02/05/21) REASON FOR UPCOMING PROCEDURE Sleep apnea CPAP RECOMMENDED/HAS NOT GOT YET Surgical History H/O foot surgery GREAT TOE JOINT REPLACEMENT H/O knee surgery NUMEROUS - BOTH H/O shoulder surgery NUMEROUS - BOTH History of colonoscopy History of prostate biopsy S/P ablation of atrial flutter Electrophysiology study, 3D mapping of the His bundle region and the coronary sinus os, left atrial pacing, ultrasound guidance venous access and radiofrequency ablation along the cavotricuspid isthmus HX 2 ABLATIONS FOR AFLUTTER - MOST RECENT FALL 2019 Family History Mother Cardiac disorder Unknown Cardiac disorder Sister Family history of diabetes mellitus Social History Smoking Status: Current some day smoker Smoking End Date: 3 YR AGO QUIT ; HAVE SMOKED SOME SINCE - 1-2 CIGS A DAY - ADVISED NPO; Do You Dip or Chew Tobacco: No (HX, QUIT 25 YR AGO); Hx Alcohol Use: Yes Alcohol type: beer Hx Substance Use: No Preferred Language: Persian Communication Ability: Effective Hearing Ability: Hard of Hearing Quick Print Operator Required: No Beliefs That Will Affect Care: None marital status: Current Living Situation: Spouse and Family Current Living Situation Comment: , GRANDSON AND MOTHER current occupational status: employed Other Information That Helps Us Care for You: Yes (NIECE HELPS WITH MOTHER) Feels Safe at Home: Yes caffeine: Yes Assistive Devices: Denture - Upper Assistive Devices Comment: READING GLASSES, PARTIAL LOWER Physical Exam Constitutional: well developed and well nourished Neck: neck nontender Respiratory: normal respiratory effort; no respiratory distress and does not use accessory muscles Cardiovascular: Rate/Rhythm: regular rate Vessels: radial pulses present Extremities: no edema Gastrointestinal (Abdomen): Inspection/Auscultation: abdomen normal to inspection Percussion/Palpation: abdomen soft; abdomen nontender and no guarding Musculoskeletal: Head/Neck/Chest: normocephalic and head atraumatic Extremities: extremities normal to inspection Skin: no rashes and no lesions Trauma: no evidence of skin trauma Neurologic: awake; not obtunded Speech / Cognition: normal speech Motor/Sensory: no tremor Psychiatric: Orientation: alert and oriented x 3 Genitourinary: no CVA tenderness Lymphatic: no lymphadenopathy Results & Data ([facility]) Vital Signs (Past 12 Hours) Vital Signs Temp Pulse Resp BP Pulse Ox 07/22/21 06:06 36.9 C 48 L 20 147/77 H 96
[2021-07-22] MEDS ORDERED: BELLADONNA/OPIUM SUPP 60 MG SUPP PR ONE ×2 (07:52→08:42)
[2021-07-22] MEDS ORDERED: ePHEDrine sulfate 50 MG/ML SYR ONE (08:21)
[2021-07-22] MEDS ORDERED: SURGICEL ABSORB HEMOSTAT 2IN X 14IN TOP ONE (08:41)
[2021-07-22] MEDS ORDERED: FLOSEAL HEMOSTATIC MATRIX 10ML TOP ONE (08:41)
[2021-07-22] MEDS ORDERED: KETOROLAC 30 MG/ML VIAL ONE (10:46)
[2021-07-22] MEDS: fentaNYL citrate 100 MCG/2 ML VIAL IV PRN ×4 (11:12→11:27)
--- NOTE | 2021-07-22 11:14 | Operative Report ---
[facility] Post Operative Report Pre & Post Diagnosis Operation Date: 07/22/21 07:30 Pre-Op Diagnosis: Prostate Cancer Post-Op Diagnosis: Prostate Cancer I identified the patient and participated in the time-out.: Yes Procedure Operation Date: 07/22/21 07:30 Actual Procedures p Robotic Laparoscopic Assisted Radical Retropubic Prostatectomy, Bilateral Pelvic Lymph Node Dissection(Not Applicable) - Isaac Ordonez MD Surgeon Deion Ordonez MD Tube Washer Lakeisha Mead Estimated Blood Loss 100 Findings Consistent with Post-Op Diagnosis Specimens 1. Periprostatic fat 2. Prostate and seminal vesicles 3. Left pelvic lymph nodes 4. Right pelvic lymph nodes Description of Procedure The patient was identified in the preoperative holding area, appropriate informed consents were reviewed and completed, and he was transported to the operating suite. Subcutaneous heparin was administered in the pre-operative holding area. Upon arrival in the operating suite, he received appropriate antibiotics and general anesthesia. He was positioned in dorsal lithotomy, a B&O suppository was inserted after digital rectal exam, and he was prepped and draped in standard fashion. A Celeste catheter was inserted in the sterile field. A Veress needle was passed per umbilicus with uniform insufflation of the abdomen to 15mmHg. He was placed in steep Trendelenburg position. A periumbilical incision was then made to accommodate a 12mm Visiport with 10mm 0degree laparoscope. Inspection of the abdomen was carried out, and there was no evidence of traumatic entry or injury secondary to the Veress needle. After confirming a clear anterior abdominal wall, ports were subsequently placed in standard robotic prostatectomy fashion without incident. To begin the robotic portion of the case, the left lateral aspect of the sigmoid was mobilized off of the left pelvic side wall to allow the pouch of Hugo to be appropriately visualized. I then made an incision in the pouch of Hugo, overlying the seminal vesicles. Both SVs as well as the ampullae of the vasa were entirely dissected, with the vasa transected 3cm from the prostate. The medial umbilical ligaments were then controlled with bipolar electrocautery just inferior to the umbilicus. Following cauterization, they were divided utilizing monopolar cautery. A peritoneal incision was carried from this location to the medial aspect of the internal inguinal rings bilaterally with care to avoid opening through the ring. This incision was concluded when the vas deferens was reached. Dissection of the bladder and prostate off of the posterior aspect of the pubic arch was completed allowing full visualization of the prostate. The fat overlying the prostate was removed en bloc and passed off the table as a specimen labeled "periprostatic fat". The endopelvic fascia was cleared during this portion of the procedure, and subsequently opened - first on the right and then the left. The incision through the endopelvic fascia began near the prostate-bladder junction and was carried to the apex with extreme care to preserve all lateral levator musculature as well as the periurethral musculature and sphincter complex. I additionally preserved the puboprostatic ligaments. I then controlled the DVC with a 3-0 V-lock suture in overlapping/figure of 8 fashion. The lymph node dissection was then conducted. External iliac vessels were identified on the pelvic side wall. The packet of fat and lymphatic tissue that resides just under the iliac vein was elevated and off of the vein with a split and roll technique. The packet was dissected laterally to the circumflex vein and distally to the obturator nerve which was preserved. The pr oximal aspect of the packet was carried towards the bifurcation of the iliac vessels. A combination of monopolar and bipolar cautery were used to assist with control. After completing the dissection on both sides, the packets were collected and passed off of the table as specimens labeled "pelvic lymph nodes". My attention then returned to the prostate, with identification of the bladder neck aided by gentle traction on the Celeste catheter and lateral to medial pressure at the presumed level of the bladder neck with the robotic instruments. An anterior cystotomy was made, the Celeste balloon deflated and the catheter guided through the incision to allow anterior retraction. I attempted to preserve maximal bladder neck musculature as I circumferentially dissected around the bladder neck. After incision through the posterior aspect of the mucosa, the dissection was carried through detrusor muscle until the bilateral ampullae of the vasa were identified. The previously dissected vasa and SVs were brought through the incision and used to elevated the prostate anteriorly. A posterior plane behind the prostate was then developed - splitting Denonvilliers's fascia. This dissection was carried as far as possible towards the apex as well as far as possible laterally. An incision in the lateral prostatic fascia was then made bilaterally to facilitate control of the vascular pedicles and preservation of the nerve bundles. Vasculature running along the posterior/lateral aspect of the prostate was preserved as well as the tissue containing the nerves. The pedicles were then controlled with a series of Weck clips. Of note, he had an accessory obturator artery on the left aspect of the prostate and this was preserved. The apical attachments of the prostate were remaining at that stage. The DVC was divided after control with bipolar cautery over the prostate. Continuous inspection from anterior and lateral views allowed me to closely follow the apical contour of the prostate and maximally preserve urethral length and tissue. The prostate was entirely freed at that point, and collected in an EndoCatch bag before being moved out of the field of vision. Hemostasis was confirmed and anastomosis of the bladder and urethra was completed utilizing a double armed V- Lock stitch. A new Celeste catheter was inserted and the anastomosis tested with irrigation. There was no evidence of leak. A malvin style stitch was placed bilaterally to functionally marsupialize the area of the lymph node dissection. The robot was undocked, the specimen extracted through expansion of the shereen- umbilical camera port. The fascia was closed with a series of 0-PDS figure of 8 stitches. The right assistant maintenance manager port was closed in two layers - with a figure of 8 0-Vicryl to reapproximate the fascia followed by 4-0 Monocryl to close the skin. Monocryl was used to close all other skin incisions. All wounds were dressed with Dermabond. The case was concluded and the patient taken to the PACU in stable condition. Lakeisha Mead assisted from incision to closure. I attest to the content of the Intraoperative Record and any orders documented therein. Any exceptions are noted below.
--- NOTE | 2021-07-22 11:59 | Anesthesiology Progress Note ---
Date of Service July 22, 2021 Anesthesia Post Procedure Vital Signs Vital Signs: Temp Pulse Pulse Resp BP BP Pulse Ox 07/22/21 11:45 97.5 F L 66 17 132/70 96 07/22/21 11:35 61 16 139/78 95 07/22/21 11:25 60 21 131/75 98 07/22/21 11:15 53 L 16 116/65 100 07/22/21 11:05 96.8 F L 74 19 116/62 99 07/22/21 06:06 98.4 F 48 L 20 147/77 H 96 Pain Intensity Abdomen: Pain Intensity: 2 Transfer of Care Handoff Completed per policy Notes Mental Status: alert / awake / arousable and participated in evaluation Patient Amnestic to Procedure: Yes Nausea / Vomiting: adequately controlled Pain: adequately controlled Airway Patency, RR, SpO2: stable & adequate BP & HR: stable & adequate Hydration State: stable & adequate Anesthetic Complications: no major complications apparent and Pt Satisfied with anesthetic care
[2021-07-22] MEDS ORDERED: ACETAMINOPHEN 325 MG TAB PO PRN (12:43)
[2021-07-22] MEDS ORDERED: oxyCODONE HCL IR 5 MG TAB (IMMEDIATE RELEASE) PO PRN (12:43)
[2021-07-22] MEDS ORDERED: PANTOprazole 40 MG TAB PO PRN (13:06)
[2021-07-22] MEDS: LACTATED RINGER'S 1,000 ML IV SCH ×2 (13:17→22:24)
[2021-07-22 13:28] LABS: Basophils # (auto) 0.01 K/uL (0-0.2); Basophils % (auto) 0.1 %; Eosinophils # (auto) 0.01 K/uL (0-0.5); Eosinophils % (auto) 0.1 %; Hematocrit (blood only) 45.2 % (42-52); Hemoglobin 15.4 g/dL (14.0-18.0); Immature Granulocytes # (auto) 0.02 K/uL (0.00-0.02); Immature Granulocytes % (auto) 0.2 %; Lymphocytes # (auto) 0.51 K/uL (1.2-3.4); Lymphocytes % (auto) 4.5 %; Mean Corpuscular Hemoglobin 33.2 pg (25-34); Mean Corpuscular Volume 97.4 fL (80-100); Mean Platelet Volume 9.7 fL (7.4-10.4); Monocytes % (auto) 1.8 %; Neutrophils # (auto) 10.65 K/uL (1.4-6.5); Neutrophils % (auto) 93.3 %; Platelet Count 225 K/uL (130-400); RDW Coefficient of Variation 15.3 % (11.5-14.5); RDW Standard Deviation 54.7 fL (36.4-46.3); Red Blood Count 4.64 M/uL (4.7-6.1)
[2021-07-22 13:36] LABS: Mean Corpuscular Hgb Conc 34.1 g/dL (32-36)
[2021-07-22 13:52] LABS: BUN Creatinine Ratio 14.3 (10-20); Calcium 8.7 mg/dl (8.5-10.1); Creatinine Clr Calc Pharmacy 64.2 ml/min; Est GFR (African American) 68.9 ml/min; Est GFR (Non-African American) 59.5 ml/min; Potassium 3.8 mmol/L (3.5-5.1)
[2021-07-22] MEDS: oxyCODONE HCL IR 5 MG TAB (IMMEDIATE RELEASE) PO PRN ×2 (15:41→20:54)
[2021-07-22] MEDS: ceFAZolin 2000MG 2,000 MG/15 ML SYR IV SCH ×2 (15:52→23:16)
[2021-07-22] MEDS: HEPARIN SOD 5,000 UNIT/0.5 ML VIAL SQ SCH (20:47)
[2021-07-23] MEDS: oxyCODONE HCL IR 5 MG TAB (IMMEDIATE RELEASE) PO PRN ×2 (04:52→10:04)
[2021-07-23 06:25] LABS: Basophils # (auto) 0.01 K/uL (0-0.2); Basophils % (auto) 0.1 %; Eosinophils # (auto) 0.01 K/uL (0-0.5); Eosinophils % (auto) 0.1 %; Hematocrit (blood only) 38.6 % (42-52); Hemoglobin 13.1 g/dL (14.0-18.0); Immature Granulocytes # (auto) 0.02 K/uL (0.00-0.02); Immature Granulocytes % (auto) 0.2 %; Lymphocytes # (auto) 1.01 K/uL (1.2-3.4); Lymphocytes % (auto) 8.3 %; Mean Corpuscular Hemoglobin 33.1 pg (25-34); Mean Corpuscular Hgb Conc 33.9 g/dL (32-36); Mean Corpuscular Volume 97.5 fL (80-100); Mean Platelet Volume 9.6 fL (7.4-10.4); Monocytes % (auto) 8.2 %; Neutrophils # (auto) 10.13 K/uL (1.4-6.5); Neutrophils % (auto) 83.1 %; Platelet Count 208 K/uL (130-400); RDW Coefficient of Variation 15.3 % (11.5-14.5); RDW Standard Deviation 54.4 fL (36.4-46.3); Red Blood Count 3.96 M/uL (4.7-6.1); White Blood Count 12.18 K/uL (4.8-10.8)
[2021-07-23 06:49] LABS: BUN Creatinine Ratio 12.9 (10-20); Calcium 8.2 mg/dl (8.5-10.1); Creatinine Clr Calc Pharmacy 65.2 ml/min; Est GFR (African American) 70.3 ml/min; Est GFR (Non-African American) 60.6 ml/min; Potassium 4.3 mmol/L (3.5-5.1)
[2021-07-23] MEDS: HEPARIN SOD 5,000 UNIT/0.5 ML VIAL SQ SCH (08:18)
[2021-07-23] MEDS: LACTATED RINGER'S 1,000 ML IV SCH (08:26)
[2021-07-23] MEDS ORDERED: AMIODARONE 200 MG TAB PO SCH (09:00)
[2021-07-23] MEDS ORDERED: LOSARTAN POTASSIUM 50 MG TAB PO SCH (09:00)
--- NOTE | 2021-07-23 09:15 | Urology Progress Note ---
Date of Service July 23, 2021 Assessment & Plan (1) Prostate cancer: Plan: plan for dc home today progressing well f/u for voiding trial next week Admission and Anticipated Discharge Date Admission Date: July 22, 2021 Subjective doing well tolerated breakfast ambulatory minimal pain Physical Exam Physical Exam: abd soft incisions ok urine clearing appropriately Results & Data ([facility]) Vital Signs (Past 12 Hours) Vital Signs Temp Pulse Resp BP BP Pulse Ox 07/23/21 07:41 36.6 C 83 18 133/77 97 07/23/21 02:32 36.7 C 51 L 16 122/67 97 07/22/21 22:45 36.7 C 53 L 16 129/77 96 PG Care Time/CCT Total # of Minutes Spent Total Time Spent with Patient: Total time spent is greater than 50% in coordination of care (as documented) at patient's floor/unit and/or counseling patient: Coding Level of Care Code None Diagnoses Prostate cancer C61
--- NOTE | 2021-07-23 14:09 | Discharge Summary ---
Date of Service July 23, 2021 Admission HPI Per Admitting Provider here for prostatectomy Admission Exam Per Admitting Provider Constitutional: well developed and well nourished Neck: neck nontender Respiratory: normal respiratory effort; no respiratory distress and does not use accessory muscles Cardiovascular: Rate/Rhythm: regular rate Vessels: radial pulses present Extremities: no edema Gastrointestinal (Abdomen): Inspection/Auscultation: abdomen normal to inspection Percussion/Palpation: abdomen soft; abdomen nontender and no guarding Musculoskeletal: Head/Neck/Chest: normocephalic and head atraumatic E xtremities: extremities normal to inspection Skin: no rashes and no lesions Trauma: no evidence of skin trauma Neurologic: awake; not obtunded Speech / Cognition: normal speech Motor/Sensory: no tremor Psychiatric: Orientation: alert and oriented x 3 Genitourinary: no CVA tenderness Lymphatic: no lymphadenopathy Principal Diagnosis Prostate cancer Discharge Exam Physical Exam: abd soft incisions ok urine clearing appropriately Discharge Data Allergies Allergy/AdvReac Type Severity Reaction Status Date / Time Sulfa (Sulfonamide Allergy Unknown UNSURE - Verified 07/22/21 06:03 Antibiotics) HAPPENED A CHILD morphine AdvReac Unknown AGITATION Verified 07/22/21 06:03 AND "DOESN'T WORK WELL" Procedures Performed Operation Date: 07/22/21 07:30 Actual Procedures p Robotic Laparoscopic Assisted Radical Retropubic Prostatectomy, Bilateral Pelvic Lymph Node Dissection(Not Applicable) - Isaac Ordonez MD Hospital Course (1) Prostate cancer: 65yo M admitted s/p Robotic Laparoscopic Assisted Radical Retropubic P rostatectomy, Bilateral Pelvic Lymph Node Dissection - Patient progressed as expected post procedure. - No acute issues postoperatively. - Labs appropriate. - Minimal pain. - Tolerated diet. - Ambulated without issue. - Celeste catheter intact with urine clearing appropriately. - Pt stable for discharge postop day #1, home with Celeste catheter. - Postoperative appointment in place. Total Time Total Time Spent Total Time Spent (In Minutes): 15 Discharge Plan Discharge Items Patient Disposition: Home - Self-Care Reason For Visit: Prostate Cancer Discharge Diagnosis: Prostate Cancer Activity: Per Instructions section Lifting: No more than 10 pounds Bathing Comment: OK to shower. No tub baths or soaks. Sexual Activity: Wait until after follow-up appointment Exercise/Sports: Wait until after follow-up appointment Driving/Machine Use: Do not drive while taking prescription pain medication. Non-emergency contact: Surgeon and Urologist Call non-emergency contact if: you have any medication questions, your pain is not controlled, your pain is worsening, you have a fever, your wound has increased redness, your wound has increased drainage and your wound pain has increased Follow-up/Referrals: Timothy Raines DO [Primary Care Provider] - [facility],Nurse [FAKE FOR SCHEDULES] - 07/28/21 10:30 am Diet: Regular Addtl Attending Provider Instructions: Please take all medications as prescribed and keep all follow-ups as scheduled. Please call our office at [phone] with any questions, concerns or need to reschedule appointments for any reason. We are happy to assist you We have sent an antibiotic (Cephalexin) to your pharmacy of choice. Please begin antibiotic as prescribed the day BEFORE your scheduled catheter removal at [facility] and continue until complete. You can resume your Eliquis in 1-2 days if your urine remains clear to light pink. Please call the urology office with any questions or concerns. Activity: We recommend having someone with you for the first few days after surgery to help care for you. For the first 2 weeks after surgery, we would like you to get up and walk around your house. However, we recommend limit physical activity that would increase your heart rate. This will allow your body to rest and heal. Take naps if you feel tired. Don't lift anything heavier than 10 pounds, mow the law or ride a bicycle until your follow-up appointment. Please avoid long car rides. Home Care: Unless directed otherwise, drink 6 to 8 glasses of water a day (enough to keep your urine light colored). This will also help keep a healthy flow of urine. We recommend continuing a stool softener (i.e. Colace) to prevent constipation/straining for at least two weeks after your procedure. A prescription has been sent to your pharmacy. Celeste Catheter or Suprapubic Catheter care: Keep the catheter well secured with either a leg back or leg strap with large bag. Empty your bag when it's about half full. You may notice some blood in the bag. This is normal after surgery and while the catheter is in place. Use mild soap (such as Dove or Dial) and water to wash the catheter and the head of your penis daily, or more frequently if needed. Return to your normal diet, we encourage good protein intake to promote healing. You may shower as normal. Please avoid tub baths or soaking until catheter removed and incisions well healed. Wearing sweat pants while you have the catheter is recommended, they will be more comfortable. Follow-up Your follow up appointments for having your catheter removed, and follow up with your physician should already be scheduled. If you have any questions regarding this, please contact our office. Your final pathology report will be discussed at your physician follow-up appointment. Call [facility] at [phone] right away if you have any of the following: Chest pain or trouble breathing (call 911 or go to the hospital) Fever of 101F or higher, uncontrolled vomiting Heavy bleeding, clots, or bright red blood from the catheter Catheter that falls out or stops draining Foul-smelling discharge from your catheter Redness, swelling, warmth, or increased pain at your incision site Drainage, pus, or bleeding from your incision Pending Studies at Discharge: Yes (Pathology) Stand-Alone Forms: My [facility] [employer], Opioid Pain Management, Smoking Cessation Medications and DC Order Prescriptions: New oxycodone-acetaminophen [Percocet] 5-325 mg tablet 1 tab PO Q8H PRN (Reason: pain) Qty: 7 RF: 0 docusate sodium [Colace] 100 mg capsule 100 mg PO BID Qty: 60 RF: 0 cephalexin 500 mg capsule 500 mg PO BID 3 Days Qty: 6 RF: 0 Continued losartan 50 mg tablet 50 mg PO QAM Qty: 90 RF: 0 Eliquis 5 mg tablet 5 mg PO BID Qty: 60 RF: 2 omeprazole 20 mg Capsule,Delayed Release(Dr/Ec) 20 mg PO UD PRN (Reason: Heartburn) RF: 0 etodolac 500 mg tablet 500 mg PO UD PRN (Reason: Inflammation) RF: 0 carisoprodol 350 mg tablet 350 mg PO UD PRN (Reason: muscle pain) RF: 0 amiodarone 200 mg tablet 200 mg PO QAM RF: 0 hydrocodone-acetaminophen 5-325 mg tablet 1 tab PO UD PRN (Reason: pain) RF: 0 Discharge Orders: Discharge Order (Routine); Ordered 07/23/21 Ordered By: Lakeisha Narvaez/Other Patient Handouts: Leg Bag Care Dc Admission Data Admit Date/Time: 07/22/21 11:15 Attending Provider: Isaac Ordonez Admit Provider: Isaac Ordonez Primary Care Provider: Timothy Raines Other Interventions: Discharge Summary Assessment (RN) Last Done: 07/23/21 12:42 Coding Level of Care Code D/C DAY MANAGEMENT <30 MINS Diagnoses Prostate cancer C61
== END 2021-07-23 13:58 | disposition home or self-care (01) ==
LOC: ASU 05:37 → 3N 11:15 → INTOOBSV 11:15